=== PATIENT | female | born 1995 | race Caucasian/White ===

== ENCOUNTER 2017-05-22 19:51 | Emergency (ER) | payer OTHER ==
[~2017-05-22] VITALS: Ht 175.3 cm; Wt 86.3 kg
[~2017-05-22 19:51] MED LIST: ATIVAN0.5 MG PO; BUSPAR10 MG PO; DIFLUCAN150 MG PO; KEFLEX500 MG PO; MACROBID100 MG PO; MOTRIN400 MG PO; MOTRIN600 MG PO; MOTRIN800 MG PO; PERCOCET 5/31 TABLET PO; PRENATAL TABLE1 EAC3 PO; PRENATAL TABLE1 EACH PO; PYRIDIUM200 MG PO; RHINOCORT ALL8.43 ML BOTH NARES; ZANTAC150 MG PO; ZOFRAN4 MG PO; ZOFRAN8 MG PO; ZYRTEC10 M3 PO
[2017-05-22 22:41] VITALS: BP 129/78
== END 2017-05-22 22:46 | disposition home or self-care (01) ==
LOC: EXP 19:51 → EME 19:51 → EXP 22:46
DX: Z32.01 Encounter for pregnancy test, result positive (principal); Z3A.00 Weeks of gestation of pregnancy not specified
CPT/HCPCS: 84702; 99281; 99283

== ENCOUNTER 2017-05-25 17:42 | Emergency (ER) | payer OTHER ==
[~2017-05-25] VITALS: Ht 165.1 cm; Wt 89.1 kg
[2017-05-25 17:50] VITALS: BP 123/69
== END 2017-05-25 18:58 | disposition home or self-care (01) ==
LOC: EME 17:42
DX: O26.899 Other specified pregnancy related conditions, unspecified trimester (principal); Z3A.00 Weeks of gestation of pregnancy not specified
CPT/HCPCS: 99281; 99283

== ENCOUNTER 2017-11-17 23:48 | Emergency (ER) | payer OTHER ==
[~2017-11-17] VITALS: Ht 165.1 cm; Wt 75.2 kg
[2017-11-18] MEDS ORDERED: NARCAN4 MG NS (01:50)
[2017-11-18 02:13] VITALS: BP 122/80
== END 2017-11-18 02:15 | disposition home or self-care (01) ==
LOC: EME 23:48
DX: T40.1X1A Poisoning by heroin, accidental (unintentional), initial encounter (principal); J45.909 Unspecified asthma, uncomplicated; Z88.8 Allergy status to other drugs, medicaments and biological substances
CPT/HCPCS: J2310

== ENCOUNTER 2017-11-18 13:39 | Emergency (ER) | payer OTHER ==
[~2017-11-18] VITALS: Ht 165.1 cm; Wt 70.0 kg
[~2017-11-18 13:39] MED LIST changes: +NARCAN4 MG NS
[2017-11-18 15:50] LABS: ADD MIUA? YES; BILIRUBIN NEGATIVE; BLOOD NEGATIVE; COLOR YELLOW ((YELLOW)); GLUCOSE (STRIP) NEGATIVE; KETONES 5; LEUKOCYTES NEGATIVE; NITRITE NEGATIVE; PROTEIN (STRIP) 30; SPECIFIC GRAVITY 1.028 (1.000-1.030)
[2017-11-18 15:51] LABS: HEMATOCRIT 37.3 % (36.0-46.0); MCH 28.3 PG (29.0-34.0); MCHC 32.4 G/DL (30.0-36.0); MCV 87.4 FL (83-99); MEAN PLAT.VOLUME 9.8 uM^3 (9.5-12.4); PLATELET COUNT 307 K/uL (156-360); RBC DIS.WIDTH-CV 14.4 % (11.8-14.6); RBC DIS.WIDTH-SD 46.5 % (39-53); RED BLOOD COUNT 4.27 M/uL (3.80-5.20); WHITE BLOOD COUNT 7.1 K/uL (4.1-10.2)
[2017-11-18 15:56] LABS: BACTERIA RARE /HPF; EPITHELIAL CELLS RARE /HPF; MUCUS 4+ /LPF; RED BLOOD CELLS 0-5 /HPF (0-5); WHITE BLOOD CELLS 0-5 /HPF (0-5)
[2017-11-18 15:58] LABS: COCAINE PRESUMPTIVE POSITIVE (150 ng/mL); METHAMPHETAMINE NEGATIVE (500 ng/mL); PHENCYCLIDINE NEGATIVE (25 ng/mL); THC CANNABINOIDS PRESUMPTIVE POSITIVE (50 ng/mL)
[2017-11-18 15:59] LABS: ADD MEDTOX COMMENT Y; AMPHETAMINE NEGATIVE (500 ng/mL); BARBITURATES NEGATIVE (200 ng/mL); BENZODIAZEPINES NEGATIVE (150 ng/mL); INTERNAL CONTROLS VALID? YES; METHADONE NEGATIVE (200 ng/mL); OPIATES (MORPHINE) PRESUMPTIVE POSITIVE (100 ng/mL); OXYCODONE NEGATIVE (100 ng/mL); PROPOXYPHENE NEGATIVE (300 ng/mL); TRICYCLIC ANTIDEPRESSANTS NEGATIVE (300 ng/mL)
[2017-11-18 16:04] LABS: CHLORIDE 102 mEq/L (99-109); POTASSIUM 3.5 mEq/L (3.7-5.4); SODIUM 139 mEq/L (136-147)
[2017-11-18 16:06] LABS: GLUCOSE 98 mg/dL (70-99)
[2017-11-18 16:07] LABS: ANION GAP 11 MEQ/L (2-14)
[2017-11-18 16:08] LABS: TOTAL BILIRUBIN 0.4 mg/dL (0.0-1.0)
[2017-11-18 16:09] LABS: SERUM ETHYL ALCOHOL < 10 mg/dL
[2017-11-18 16:10] LABS: ALKALINE PHOSPHATASE 84 IU/L (3-129); GFR ESTIMATE (CALCULATED) > 59 mL/min/
[2017-11-18 16:11] LABS: UREA NITROGEN (BUN) 9 mg/dL (9-23)
[2017-11-18 16:19] LABS: QUANTITATIVE HCG < 4.0 MIU/ML
[2017-11-18 16:49] VITALS: BP 130/69
== END 2017-11-18 16:50 | disposition home or self-care (01) ==
LOC: EME 13:39
PROVIDERS: Emergency Medicine
DX: F31.9 Bipolar disorder, unspecified (principal); Z76.0 Encounter for issue of repeat prescription; F14.10 Cocaine abuse, uncomplicated; F12.10 Cannabis abuse, uncomplicated; F11.10 Opioid abuse, uncomplicated; F17.200 Nicotine dependence, unspecified, uncomplicated
CPT/HCPCS: 80053; 81003; 84702; 84999; 85027; 90839; 99281; 99285; G0480

== ENCOUNTER 2018-06-13 17:06 | Emergency (ER) | payer OTHER ==
[~2018-06-13] VITALS: Ht 165.1 cm; Wt 73.3 kg
[2018-06-13 17:41] LABS: HEMATOCRIT 43.6 % (36.0-46.0); HEMOGLOBIN 13.9 G/DL (11.9-15.5); MCH 28.3 PG (29.0-34.0); MCHC 31.9 G/DL (30.0-36.0); MCV 88.6 FL (83-99); PLATELET COUNT 277 K/uL (156-360); RBC DIS.WIDTH-CV 14.4 % (11.8-14.6); RBC DIS.WIDTH-SD 46.6 % (39-53); RED BLOOD COUNT 4.92 M/uL (3.80-5.20); WHITE BLOOD COUNT 9.8 K/uL (4.1-10.2)
[2018-06-13 17:52] LABS: CHLORIDE 102 mEq/L (99-109); POTASSIUM 4.2 mEq/L (3.7-5.4); SODIUM 137 mEq/L (136-147)
[2018-06-13 17:53] LABS: GLUCOSE 161 mg/dL (70-99)
[2018-06-13 17:57] LABS: CREATININE 0.9 mg/dL (0.6-1.3); GFR ESTIMATE (CALCULATED) > 59 mL/min/
[2018-06-13 17:58] LABS: UREA NITROGEN (BUN) 8 mg/dL (9-23)
[2018-06-13] MEDS ORDERED: PREDNISONE20 MG PO (19:40)
[2018-06-13] MEDS ORDERED: FLONASE16 G1 BOTH NARES (19:40)
[2018-06-13] MEDS ORDERED: VENTOLIN HFA18 GM IH (19:40)
[2018-06-13 19:59] VITALS: BP 126/61
== END 2018-06-13 20:02 | disposition home or self-care (01) ==
LOC: EME 17:06 → RME 17:06
DX: J06.9 Acute upper respiratory infection, unspecified (principal); J45.901 Unspecified asthma with (acute) exacerbation; F17.200 Nicotine dependence, unspecified, uncomplicated
CPT/HCPCS: 71046; 80048; 85027; 94640; 99281; 99283; J1100

== ENCOUNTER 2018-07-16 18:42 | Emergency (ER) | payer OTHER ==
[~2018-07-16] VITALS: Ht 165.1 cm; Wt 68.2 kg
[~2018-07-16 18:42] MED LIST changes: +FLONASE16 G1 BOTH NARES; +PREDNISONE20 MG PO; +VENTOLIN HFA18 GM IH
[2018-07-16] MEDS ORDERED: VENTOLIN HFA18 GM IH (20:59)
[2018-07-16 21:11] VITALS: BP 104/84
== END 2018-07-16 21:11 | disposition home or self-care (01) ==
LOC: EME 18:42
DX: J45.901 Unspecified asthma with (acute) exacerbation (principal); F31.9 Bipolar disorder, unspecified; F17.200 Nicotine dependence, unspecified, uncomplicated; Z88.8 Allergy status to other drugs, medicaments and biological substances; Z91.018 Allergy to other foods
CPT/HCPCS: 71046; 94640; 99281; 99284; J1100